=== PATIENT | female | born 1940 | race Caucasian/White ===

== ENCOUNTER 2018-05-10 01:49 | Inpatient (IN) | payer MEDICARE, MEDICAID ==
[~2018-05-10] VITALS: Ht 170.2 cm; Wt 84.4 kg
[~2018-05-10 01:49] MED LIST: DOXE50CA21 PO; LORA-259 PO; OXYC20TA58 PO; armour thyroid PO; toprol PO
[2018-05-10] MEDS ORDERED: NALOXONE HCL 0.4 MG/ML AMPUL ONE (02:03)
[2018-05-10] MEDS ORDERED: NALOXONE HCL 0.4 MG/ML AMPUL IV ONE (02:30)
[2018-05-10] MEDS ORDERED: IV NS 0.9% 1,000 ML BAG IV ONE ×2 (02:30→06:00)
[2018-05-10 03:11] LABS: HEMATOCRIT 41 % (33-45); HEMOGLOBIN 13.6 g/dL (11.5-14.8); MEAN CORPUSCULAR HEMOGLOBIN 31 PG (26.0-33.0); MEAN CORPUSCULAR HGB CONC 33 g/dl (31.0-36.0); MEAN CORPUSCULAR VOLUME 92 fL (82-100); PLATELET COUNT (AUTO) 194 /CMM (150-450); RDW COEFFICIENT OF VARIATION 13.9 (11.5-15.0); RED BLOOD CELL COUNT(AUTO) 4.44 MIL/uL (4.0-5.2)
[2018-05-10 03:12] LABS: BASOPHILS % (AUTO) 0.1 % (0.0-2.0); EOSINOPHILS % (AUTO) 0.7 % (0.0-6.0); LYMPHOCYTES % (AUTO) 12.4 % (20.0-44.0); MONOCYTES % (AUTO) 4.7 % (2.0-12.0); NEUTROPHILS % (AUTO) 82.1 % (43.0-81.0)
[2018-05-10 03:22] LABS: INR 1.08 (0.87-1.13)
[2018-05-10 03:25] LABS: CALCIUM, SERUM 9.3 mg/dL (8.5-10.1); CARBON DIOXIDE 21 mmol/L (21-32); CHLORIDE 100 mmol/L (98-107); CREATININE 2.1 mg/dL (0.6-1.3); GLUCOSE 120 mg/dL (74-106); POTASSIUM 4.1 mmol/L (3.5-5.1); SODIUM SERUM 134 mmol/L (136-145); UREA NITROGEN, BLOOD 24 mg/dL (7-18)
[2018-05-10 03:35] LABS: ALANINE AMINOTRANSFERASE 26 U/L (12-78); ALCOHOL, BLOOD < 3 mg/dL (0-0); ALKALINE PHOSPHATASE 126 U/L (46-116); ASPARTATE AMINOTRANSFERASE 36 U/L (15-37); BILIRUBIN,DIRECT 0.1 mg/dL (0.0-0.2); BILIRUBIN,TOTAL 0.6 mg/dL (0.2-1.0); TOTAL PROTEIN, SERUM 7.5 g/dL (6.4-8.2)
[2018-05-10 03:35] LABS: APPEARANCE,URINE CLEAR (CLEAR); BILIRUBIN,URINE NEGATIVE (NEGATIVE); BLOOD, URINE NEGATIVE Ery/uL (NEGATIVE); COLOR,URINE YELLOW (YELLOW); KETONES,URINE NEGATIVE (NEGATIVE); LEUKOCYTE ESTERASE ,URINE NEGATIVE (NEGATIVE); NITRITE, URINE NEGATIVE (NEGATIVE); PROTEIN,URINE 1+ mg/dl (NEGATIVE); UGLUCOSE NEGATIVE (NEGATIVE); UROBILINOGEN,URINE 0.2 EU/dL (0.2)
[2018-05-10 03:45] LABS: BACTERIA,URINE None seen /HPF (None Seen); RBC,URINE 0-2 /HPF (0-2); SQUAMOUS EPITHELIAL CELL,UR Few /HPF (None Seen); WBC,URINE 0-2 /HPF (0-3)
[2018-05-10 03:46] LABS: HYALINE CASTS, URINE Few /LPF (None Seen); MUCUS,URINE Few /LPF (None Seen); URINE AMORPHOUS URATE Few /HPF (None Seen)
[2018-05-10 03:51] LABS: TROPONIN I 0.698 ng/mL (0.00-0.056)
[2018-05-10] MEDS ORDERED: IV NS 0.9% 1,000 ML IV PRN (05:19)
[2018-05-10] MEDS ORDERED: MAG HYDROX/AL HYDROX/SIMETH 30 ML UDC PO PRN (05:30)
[2018-05-10] MEDS ORDERED: ONDANSETRON HCL/PF 4 MG/2 ML VIAL IVP PRN (05:30)
[2018-05-10] MEDS ORDERED: MAGNESIUM HYDROXIDE 30 ML UDC PO PRN (05:30)
[2018-05-10] MEDS ORDERED: Z GUARD REMEDY 2 OZ OINT TP PRN (05:30)
[2018-05-10] MEDS ORDERED: DOCU-267 PO (07:42)
[2018-05-10] MEDS ORDERED: THYR60TA2 PO (07:42)
[2018-05-10] MEDS ORDERED: FOLI1TAB16 PO (07:42)
[2018-05-10] MEDS ORDERED: METO25TA3 PO (07:42)
[2018-05-10] MEDS ORDERED: CHOL100044 PO (08:09)
[2018-05-10 08:18] LABS: THYROID STIMULATING HORMONE 4.309 uIU/mL (0.358-3.74)
[2018-05-10 08:25] VITALS: BP 118/55
[2018-05-10] MEDS: IV NS 0.9% 1,000 ML IV SCH ×2 (08:35→13:36)
[2018-05-10 08:49] LABS: MAGNESIUM 1.6 mg/dL (1.8-2.4)
[2018-05-10] MEDS: FOLIC ACID 1 MG TABLET PO SCH (09:00)
[2018-05-10] MEDS ORDERED: ARMOUR THYROID PO SCH (09:00)
[2018-05-10] MEDS: METOPROLOL SUCCINATE 25 MG TAB.SR.24H PO SCH (09:00)
[2018-05-10] MEDS: ASPIRIN 81 MG TAB.CHEW PO SCH (09:01)
[2018-05-10] MEDS: PANTOPRAZOLE 40 MG TABLET.DR PO SCH (09:01)
[2018-05-10] MEDS: DOCUSATE SODIUM 100 MG CAPSULE PO SCH ×2 (09:01→17:02)
[2018-05-10] MEDS: THYROID 30 MG TABLET PO SCH (09:02)
[2018-05-10] MEDS ORDERED: Magnesium 1GM/D5W 100ML PREMIX 100 ML IV SCH (10:30)
[2018-05-10] MEDS: ACETAMINOPHEN 325 MG TABLET PO PRN ×2 (10:32→21:27)
[2018-05-10 12:00] VITALS: BP 133/56
[2018-05-10 16:00] VITALS: BP 118/46
[2018-05-10 20:00] VITALS: BP 130/65
[2018-05-11] VITALS: BP 127/64
[2018-05-11 04:00] VITALS: BP 143/71
[2018-05-11 06:42] LABS: EOSINOPHILS % (AUTO) 0.1 % (0.0-6.0); HEMATOCRIT 34 % (33-45); HEMOGLOBIN 11.4 g/dL (11.5-14.8); LYMPHOCYTES # (AUTO) 0.8 /CMM (0.8-4.8); LYMPHOCYTES % (AUTO) 4.3 % (20.0-44.0); MEAN CORPUSCULAR HEMOGLOBIN 31 PG (26.0-33.0); MEAN CORPUSCULAR HGB CONC 34 g/dl (31.0-36.0); MEAN CORPUSCULAR VOLUME 93 fL (82-100); MONOCYTES # (AUTO) 0.1 /CMM (0.1-1.30); MONOCYTES % (AUTO) 0.4 % (2.0-12.0); NEUTROPHILS # (AUTO) 17.8 /CMM (1.8-8.9); NEUTROPHILS % (AUTO) 95.2 % (43.0-81.0); PLATELET COUNT (AUTO) 151 /CMM (150-450); RDW COEFFICIENT OF VARIATION 13.7 (11.5-15.0); RED BLOOD CELL COUNT(AUTO) 3.69 MIL/uL (4.0-5.2); WHITE BLOOD COUNT (AUTO) 18.7 K/uL (4.3-11.0)
[2018-05-11 06:48] LABS: TROPONIN I 0.252 ng/mL (0.00-0.056)
[2018-05-11 06:49] LABS: ALANINE AMINOTRANSFERASE 28 U/L (12-78); ALBUMIN 2.2 g/dL (3.4-5.0); ALKALINE PHOSPHATASE 105 U/L (46-116); ASPARTATE AMINOTRANSFERASE 37 U/L (15-37); BILIRUBIN,TOTAL 0.6 mg/dL (0.2-1.0); CALCIUM, SERUM 7.9 mg/dL (8.5-10.1); CARBON DIOXIDE 21 mmol/L (21-32); CHLORIDE 102 mmol/L (98-107); CREATININE 1.5 mg/dL (0.6-1.3); GLUCOSE 123 mg/dL (74-106); MAGNESIUM 1.6 mg/dL (1.8-2.4); PHOSPHORUS 2.1 mg/dL (2.5-4.9); SODIUM SERUM 134 mmol/L (136-145); TOTAL PROTEIN, SERUM 5.8 g/dL (6.4-8.2); UREA NITROGEN, BLOOD 19 mg/dL (7-18)
[2018-05-11 07:54] LABS: CHOLESTEROL 107 mg/dL (<200); HDL CHOLESTEROL 30 mg/dL (40-60); LDL 60 mg/dL (0-99); TRIGLYCERIDES 59 mg/dL (30-150)
[2018-05-11 08:00] VITALS: BP 129/63
[2018-05-11] MEDS: THYROID 30 MG TABLET PO SCH (08:04)
[2018-05-11] MEDS: FOLIC ACID 1 MG TABLET PO SCH (08:04)
[2018-05-11] MEDS: METOPROLOL SUCCINATE 25 MG TAB.SR.24H PO SCH (08:04)
[2018-05-11] MEDS: PANTOPRAZOLE 40 MG TABLET.DR PO SCH (08:04)
[2018-05-11] MEDS: ASPIRIN 81 MG TAB.CHEW PO SCH (08:04)
[2018-05-11] MEDS: DOCUSATE SODIUM 100 MG CAPSULE PO SCH ×2 (08:05→16:18)
[2018-05-11] MEDS: POTASSIUM CHLORIDE 20 MEQ POWDER PACKET PO ONE ×2 (09:00→10:35)
[2018-05-11] MEDS ORDERED: Magnesium 1GM/D5W 100ML PREMIX PIGGYBACK IV ONE (09:00)
[2018-05-11] MEDS ORDERED: MGSO4/D5W 100 ML IV ONE (09:30)
[2018-05-11] MEDS ORDERED: POTASSIUM PHOSPHATE MM 15 MMOL in IV D5W 250 ML IV SCH (10:00)
[2018-05-11] MEDS: IV NS 0.9% 1,000 ML IV PRN (10:36)
[2018-05-11] MEDS ORDERED: POTASSIUM CHLORIDE 20 MEQ TAB.PRT.SR PO ONE (11:30)
[2018-05-11 12:00] VITALS: BP 134/64
[2018-05-11] MEDS: POTASSIUM PHOSPHATE MM 7.5 MMOL in IV D5W 100 ML IV SCH ×2 (13:03→21:48)
[2018-05-11] MEDS: CYANOCOBALAMIN 500 MCG TABLET PO SCH (14:42)
[2018-05-11] MEDS ORDERED: FEE PK DOSING 1 MIN EA MC ONE (15:35)
[2018-05-11 16:00] VITALS: BP 144/70
[2018-05-11] MEDS: VANCOMYCIN 0.75 GM in IV D5W 250 ML IV SCH (16:19)
[2018-05-11] MEDS: PIPERACILLIN /TAZOBACTAM 2.25 G in IV D5W 50 ML IV SCH ×2 (18:43→23:09)
[2018-05-11 20:00] VITALS: BP 149/68
[2018-05-12] VITALS: BP 149/76
[2018-05-12 04:00] VITALS: BP 161/73
[2018-05-12 05:00] VITALS: BP 155/72
[2018-05-12] MEDS: PIPERACILLIN /TAZOBACTAM 2.25 G in IV D5W 50 ML IV SCH ×4 (05:05→23:05)
[2018-05-12 06:26] LABS: EOSINOPHILS % (AUTO) 0.2 % (0.0-6.0); HEMATOCRIT 33 % (33-45); HEMOGLOBIN 10.9 g/dL (11.5-14.8); LYMPHOCYTES # (AUTO) 0.8 /CMM (0.8-4.8); LYMPHOCYTES % (AUTO) 4.7 % (20.0-44.0); MEAN CORPUSCULAR HEMOGLOBIN 31 PG (26.0-33.0); MEAN CORPUSCULAR HGB CONC 33 g/dl (31.0-36.0); MEAN CORPUSCULAR VOLUME 92 fL (82-100); MONOCYTES # (AUTO) 0.1 /CMM (0.1-1.30); MONOCYTES % (AUTO) 0.6 % (2.0-12.0); NEUTROPHILS # (AUTO) 15.4 /CMM (1.8-8.9); NEUTROPHILS % (AUTO) 94.5 % (43.0-81.0); PLATELET COUNT (AUTO) 151 /CMM (150-450); RDW COEFFICIENT OF VARIATION 13.6 (11.5-15.0); RED BLOOD CELL COUNT(AUTO) 3.58 MIL/uL (4.0-5.2); WHITE BLOOD COUNT (AUTO) 16.3 K/uL (4.3-11.0)
[2018-05-12] MEDS: IV NS 0.9% 1,000 ML IV PRN ×2 (06:29→23:44)
[2018-05-12 06:37] LABS: ALANINE AMINOTRANSFERASE 29 U/L (12-78); ALKALINE PHOSPHATASE 99 U/L (46-116); ASPARTATE AMINOTRANSFERASE 34 U/L (15-37); BILIRUBIN,TOTAL 0.6 mg/dL (0.2-1.0); CALCIUM, SERUM 7.6 mg/dL (8.5-10.1); CARBON DIOXIDE 21 mmol/L (21-32); CHLORIDE 100 mmol/L (98-107); CREATININE 1.3 mg/dL (0.6-1.3); GLUCOSE 131 mg/dL (74-106); MAGNESIUM 1.7 mg/dL (1.8-2.4); PHOSPHORUS 1.5 mg/dL (2.5-4.9); SODIUM SERUM 131 mmol/L (136-145); TOTAL PROTEIN, SERUM 5.2 g/dL (6.4-8.2); UREA NITROGEN, BLOOD 15 mg/dL (7-18)
[2018-05-12 06:40] LABS: POTASSIUM 2.7 mmol/L (3.5-5.1)
[2018-05-12 06:50] LABS: FERRITIN 575 ng/mL (8-388)
[2018-05-12 08:00] VITALS: BP 155/80
[2018-05-12] MEDS: THYROID 30 MG TABLET PO SCH (08:06)
[2018-05-12] MEDS: DOCUSATE SODIUM 100 MG CAPSULE PO SCH ×2 (08:06→17:00)
[2018-05-12 08:08] LABS: IRON, SERUM 17 ug/dl (50-175); TOTAL IRON BINDING CAPACITY 132 ug/dl (250-450)
[2018-05-12] MEDS: CYANOCOBALAMIN 500 MCG TABLET PO SCH (08:11)
[2018-05-12] MEDS: ASPIRIN 81 MG TAB.CHEW PO SCH (08:11)
[2018-05-12] MEDS: FOLIC ACID 1 MG TABLET PO SCH (08:11)
[2018-05-12] MEDS: PANTOPRAZOLE 40 MG TABLET.DR PO SCH (08:11)
[2018-05-12] MEDS: METOPROLOL SUCCINATE 25 MG TAB.SR.24H PO SCH (08:12)
[2018-05-12] MEDS: VANCOMYCIN 0.75 GM in IV D5W 250 ML IV SCH (09:01)
[2018-05-12] MEDS: POTASSIUM CHLORIDE 20 MEQ TAB.PRT.SR PO SCH ×3 (10:07→12:21)
[2018-05-12] MEDS: Magnesium 1GM/D5W 100ML PREMIX 100 ML IV SCH ×2 (10:35→11:40)
[2018-05-12] MEDS ORDERED: POTASSIUM CHLORIDE 20 MEQ TAB.PRT.SR PO ONE (11:00)
[2018-05-12] MEDS ORDERED: K PHOS NEUTRAL 250 MG TABLET PO ONE (11:00)
[2018-05-12] MEDS: METOCLOPRAMIDE HCL 10 MG/2 ML VIAL IV PRN (12:33)
[2018-05-12] MEDS: POTASSIUM CL. PREMIX PERIPHER. 50 ML IV SCH ×4 (13:43→19:05)
[2018-05-12] MEDS ORDERED: POTASSIUM CHLORIDE 10 MEQ/50 ML PREMIXED IVPB FOR PERIPHERAL LINE IV SCH (14:00)
[2018-05-12] MEDS: LACTOBACILLUS RHAMNOSUS GG 1 EACH CAP.SPRINK PO SCH (14:04)
[2018-05-12] MEDS: SOD FERRIC GLUC 125 MG in IV NS 0.9% 100 ML IV SCH (14:51)
[2018-05-12 16:00] VITALS: BP 145/75
[2018-05-12 20:00] VITALS: BP 129/78
[2018-05-12] MEDS: oxyCODONE HCL SR 20MG TAB.SR.12H PO SCH (20:32)
[2018-05-13 03:24] LABS: EOSINOPHILS % (AUTO) 0.6 % (0.0-6.0); HEMATOCRIT 36 % (33-45); HEMOGLOBIN 12.1 g/dL (11.5-14.8); LYMPHOCYTES # (AUTO) 1.1 /CMM (0.8-4.8); LYMPHOCYTES % (AUTO) 6.1 % (20.0-44.0); MEAN CORPUSCULAR HEMOGLOBIN 31 PG (26.0-33.0); MEAN CORPUSCULAR HGB CONC 34 g/dl (31.0-36.0); MEAN CORPUSCULAR VOLUME 91 fL (82-100); MONOCYTES # (AUTO) 0.1 /CMM (0.1-1.30); MONOCYTES % (AUTO) 0.3 % (2.0-12.0); NEUTROPHILS # (AUTO) 16.2 /CMM (1.8-8.9); PLATELET COUNT (AUTO) 176 /CMM (150-450); RDW COEFFICIENT OF VARIATION 13.8 (11.5-15.0); RED BLOOD CELL COUNT(AUTO) 3.93 MIL/uL (4.0-5.2); WHITE BLOOD COUNT (AUTO) 17.5 K/uL (4.3-11.0)
[2018-05-13 03:35] LABS: ALANINE AMINOTRANSFERASE 37 U/L (12-78); ALBUMIN 2.2 g/dL (3.4-5.0); ALKALINE PHOSPHATASE 112 U/L (46-116); ASPARTATE AMINOTRANSFERASE 40 U/L (15-37); BILIRUBIN,TOTAL 0.7 mg/dL (0.2-1.0); CALCIUM, SERUM 7.9 mg/dL (8.5-10.1); CARBON DIOXIDE 23 mmol/L (21-32); CHLORIDE 101 mmol/L (98-107); CREATININE 1.4 mg/dL (0.6-1.3); GLUCOSE 128 mg/dL (74-106); MAGNESIUM 2.2 mg/dL (1.8-2.4); PHOSPHORUS 2.2 mg/dL (2.5-4.9); POTASSIUM 3.7 mmol/L (3.5-5.1); SODIUM SERUM 131 mmol/L (136-145); TOTAL PROTEIN, SERUM 5.8 g/dL (6.4-8.2); UREA NITROGEN, BLOOD 13 mg/dL (7-18)
[2018-05-13] MEDS: VANCOMYCIN 0.75 GM in IV D5W 250 ML IV SCH (03:58)
[2018-05-13 04:00] VITALS: BP 128/77
[2018-05-13] MEDS: PIPERACILLIN /TAZOBACTAM 2.25 G in IV D5W 50 ML IV SCH ×2 (05:03→11:17)
[2018-05-13 08:00] VITALS: BP 140/74
[2018-05-13 08:08] LABS: *SPE A/G RATIO 0.9 (0.7-1.7); *SPE ALBUMIN 2.7 g/dL (2.9-4.4); *SPE ALPHA-1-GLOBULIN 0.4 g/dL (0.0-0.4); *SPE ALPHA-2-GLOBULIN 0.8 g/dL (0.4-1.0); *SPE BETA GLOBULIN 1.1 g/dL (0.7-1.3); *SPE GLOBULIN, TOTAL 3.1 g/dL (2.2-3.9); *SPE M-SPIKE Not Observed g/dL (Not Observed); *SPEGAMMA GLOBULIN 0.7 g/dL (0.4-1.8)
[2018-05-13] MEDS: DOCUSATE SODIUM 100 MG CAPSULE PO SCH (08:31)
[2018-05-13] MEDS: CYANOCOBALAMIN 500 MCG TABLET PO SCH (08:31)
[2018-05-13] MEDS: PANTOPRAZOLE 40 MG TABLET.DR PO SCH (08:32)
[2018-05-13] MEDS: METOPROLOL SUCCINATE 25 MG TAB.SR.24H PO SCH (08:32)
[2018-05-13] MEDS: oxyCODONE HCL SR 20MG TAB.SR.12H PO SCH ×2 (08:32→20:04)
[2018-05-13] MEDS: FOLIC ACID 1 MG TABLET PO SCH (08:32)
[2018-05-13] MEDS: ASPIRIN 81 MG TAB.CHEW PO SCH (08:32)
[2018-05-13] MEDS: LACTOBACILLUS RHAMNOSUS GG 1 EACH CAP.SPRINK PO SCH (08:32)
[2018-05-13] MEDS: THYROID 30 MG TABLET PO SCH (08:33)
[2018-05-13] MEDS: IV NS 0.9% 1,000 ML IV PRN ×2 (09:55→23:33)
[2018-05-13] MEDS ORDERED: Sodium Phosphate 15 MMOL in IV D5W 250 ML IV ONE (11:00)
[2018-05-13] MEDS ORDERED: VANCOMYCIN HCL 125 MG/2.5 ML ORAL.SUSP PO SCH (12:00)
[2018-05-13] MEDS: METRONIDAZOLE 500MG/ NS 100ML 500 MG in PREMIX 1 EA IV SCH ×2 (12:50→20:04)
[2018-05-13] MEDS: SOD FERRIC GLUC 125 MG in IV NS 0.9% 100 ML IV SCH (14:07)
[2018-05-13] MEDS ORDERED: FERROUS SULFATE (325 MG) 325 MG/TAB TABLET PO SCH (14:30)
[2018-05-13] MEDS: MORPHINE SULFATE INJ 2 MG/ML DISP.SYRIN IV PRN ×2 (15:28→23:38)
[2018-05-13 16:00] VITALS: BP 110/71
[2018-05-13] MEDS ORDERED: VANCOMYCIN 0.75 GM in IV D5W 250 ML IV SCH (16:00)
[2018-05-13] MEDS: VANCOMYCIN HCL 125 MG/2.5 ML ORAL.SUSP PO SCH ×2 (17:11→23:38)
[2018-05-13 20:00] VITALS: BP 108/59
[2018-05-14 04:00] VITALS: BP_SYST 117; BP_DIAS 70; BP_DIAS 79
[2018-05-14] MEDS: METRONIDAZOLE 500MG/ NS 100ML 500 MG in PREMIX 1 EA IV SCH ×3 (04:58→20:14)
[2018-05-14] MEDS: VANCOMYCIN HCL 125 MG/2.5 ML ORAL.SUSP PO SCH ×3 (06:33→18:03)
[2018-05-14 08:00] VITALS: BP 123/69
[2018-05-14] MEDS: LACTOBACILLUS RHAMNOSUS GG 1 EACH CAP.SPRINK PO SCH (08:34)
[2018-05-14] MEDS: CYANOCOBALAMIN 500 MCG TABLET PO SCH (08:34)
[2018-05-14] MEDS: FOLIC ACID 1 MG TABLET PO SCH (08:34)
[2018-05-14] MEDS: METOPROLOL SUCCINATE 25 MG TAB.SR.24H PO SCH (08:34)
[2018-05-14] MEDS: PANTOPRAZOLE 40 MG TABLET.DR PO SCH (08:35)
[2018-05-14] MEDS: ASPIRIN 81 MG TAB.CHEW PO SCH (08:35)
[2018-05-14] MEDS: THYROID 30 MG TABLET PO SCH (08:35)
[2018-05-14] MEDS: oxyCODONE HCL SR 20MG TAB.SR.12H PO SCH ×2 (08:36→20:35)
[2018-05-14] MEDS: IV NS 0.9% 1,000 ML IV PRN (08:50)
[2018-05-14 16:00] VITALS: BP_SYST 140; BP_SYST 146; BP_DIAS 75
[2018-05-14] MEDS ORDERED: OLANZAPINE 5 MG/TAB.RAPDIS PO PRN (17:30)
[2018-05-14 18:29] LABS: BASOPHILS % (AUTO) 0.2 % (0.0-2.0); EOSINOPHILS % (AUTO) 1.8 % (0.0-6.0); HEMATOCRIT 30 % (33-45); HEMOGLOBIN 9.6 g/dL (11.5-14.8); LYMPHOCYTES # (AUTO) 1.1 /CMM (0.8-4.8); LYMPHOCYTES % (AUTO) 7.9 % (20.0-44.0); MEAN CORPUSCULAR HEMOGLOBIN 30 PG (26.0-33.0); MEAN CORPUSCULAR HGB CONC 32 g/dl (31.0-36.0); MEAN CORPUSCULAR VOLUME 93 fL (82-100); MONOCYTES # (AUTO) 0.4 /CMM (0.1-1.30); MONOCYTES % (AUTO) 2.7 % (2.0-12.0); NEUTROPHILS # (AUTO) 12.2 /CMM (1.8-8.9); NEUTROPHILS % (AUTO) 87.4 % (43.0-81.0); PLATELET COUNT (AUTO) 168 /CMM (150-450); RDW COEFFICIENT OF VARIATION 14.3 (11.5-15.0); RED BLOOD CELL COUNT(AUTO) 3.19 MIL/uL (4.0-5.2)
[2018-05-14] MEDS ORDERED: IBUPROFEN 200 MG TABLET PO PRN (18:30)
[2018-05-14 18:35] LABS: CALCIUM, SERUM 7.5 mg/dL (8.5-10.1); CARBON DIOXIDE 16 mmol/L (21-32); CHLORIDE 106 mmol/L (98-107); CREATININE 1.7 mg/dL (0.6-1.3); GLUCOSE 112 mg/dL (74-106); PHOSPHORUS 3.3 mg/dL (2.5-4.9); POTASSIUM 3.1 mmol/L (3.5-5.1); SODIUM SERUM 136 mmol/L (136-145); UREA NITROGEN, BLOOD 17 mg/dL (7-18)
[2018-05-14 20:00] VITALS: BP 138/76
[2018-05-15] MEDS: VANCOMYCIN HCL 125 MG/2.5 ML ORAL.SUSP PO SCH ×4 (00:21→18:45)
[2018-05-15] MEDS: IV NS 0.9% 1,000 ML IV PRN ×3 (00:45→21:29)
[2018-05-15 04:00] VITALS: BP_SYST 138; BP_DIAS 76; BP_DIAS 83
[2018-05-15] MEDS: METRONIDAZOLE 500MG/ NS 100ML 500 MG in PREMIX 1 EA IV SCH ×3 (04:10→20:39)
[2018-05-15] MEDS: MORPHINE SULFATE INJ 2 MG/ML DISP.SYRIN IV PRN ×2 (04:30→18:47)
[2018-05-15 08:00] VITALS: BP 132/76
[2018-05-15] MEDS: LACTOBACILLUS RHAMNOSUS GG 1 EACH CAP.SPRINK PO SCH (08:41)
[2018-05-15] MEDS: oxyCODONE HCL SR 20MG TAB.SR.12H PO SCH ×2 (08:42→20:39)
[2018-05-15] MEDS: FOLIC ACID 1 MG TABLET PO SCH (08:42)
[2018-05-15] MEDS: ASPIRIN 81 MG TAB.CHEW PO SCH (08:42)
[2018-05-15] MEDS: PANTOPRAZOLE 40 MG TABLET.DR PO SCH (08:42)
[2018-05-15] MEDS: METOPROLOL SUCCINATE 25 MG TAB.SR.24H PO SCH (08:43)
[2018-05-15] MEDS: CYANOCOBALAMIN 500 MCG TABLET PO SCH (08:45)
[2018-05-15] MEDS: THYROID 30 MG TABLET PO SCH (08:46)
[2018-05-15] MEDS: METOCLOPRAMIDE HCL 10 MG/2 ML VIAL IV PRN ×2 (11:44→18:45)
[2018-05-15 15:22] LABS: BASOPHILS % (AUTO) 0.2 % (0.0-2.0); EOSINOPHILS % (AUTO) 1.4 % (0.0-6.0); HEMATOCRIT 31 % (33-45); HEMOGLOBIN 10.2 g/dL (11.5-14.8); LYMPHOCYTES # (AUTO) 1.4 /CMM (0.8-4.8); LYMPHOCYTES % (AUTO) 8.8 % (20.0-44.0); MEAN CORPUSCULAR HEMOGLOBIN 31 PG (26.0-33.0); MEAN CORPUSCULAR HGB CONC 33 g/dl (31.0-36.0); MEAN CORPUSCULAR VOLUME 93 fL (82-100); MONOCYTES # (AUTO) 0.4 /CMM (0.1-1.30); MONOCYTES % (AUTO) 2.4 % (2.0-12.0); NEUTROPHILS # (AUTO) 13.9 /CMM (1.8-8.9); NEUTROPHILS % (AUTO) 87.2 % (43.0-81.0); PLATELET COUNT (AUTO) 168 /CMM (150-450); RDW COEFFICIENT OF VARIATION 14.6 (11.5-15.0); RED BLOOD CELL COUNT(AUTO) 3.36 MIL/uL (4.0-5.2); WHITE BLOOD COUNT (AUTO) 15.9 K/uL (4.3-11.0)
[2018-05-15 15:36] LABS: ALANINE AMINOTRANSFERASE 33 U/L (12-78); ALBUMIN 2.1 g/dL (3.4-5.0); ALKALINE PHOSPHATASE 96 U/L (46-116); ASPARTATE AMINOTRANSFERASE 37 U/L (15-37); BILIRUBIN,TOTAL 0.5 mg/dL (0.2-1.0); CARBON DIOXIDE 17 mmol/L (21-32); CHLORIDE 105 mmol/L (98-107); CREATININE 2.2 mg/dL (0.6-1.3); GLUCOSE 105 mg/dL (74-106); PHOSPHORUS 3.5 mg/dL (2.5-4.9); POTASSIUM 3.3 mmol/L (3.5-5.1); SODIUM SERUM 135 mmol/L (136-145); TOTAL PROTEIN, SERUM 5.6 g/dL (6.4-8.2); UREA NITROGEN, BLOOD 22 mg/dL (7-18)
[2018-05-15 16:00] VITALS: BP 130/75
[2018-05-15 20:00] VITALS: BP 138/77
[2018-05-16] MEDS: VANCOMYCIN HCL 125 MG/2.5 ML ORAL.SUSP PO SCH ×7 (00:33→18:46)
[2018-05-16] MEDS: MORPHINE SULFATE INJ 2 MG/ML DISP.SYRIN IV PRN (00:34)
[2018-05-16 04:00] VITALS: BP 151/86
[2018-05-16] MEDS: METRONIDAZOLE 500MG/ NS 100ML 500 MG in PREMIX 1 EA IV SCH ×3 (05:39→21:03)
[2018-05-16 06:32] LABS: BASOPHILS % (AUTO) 0.1 % (0.0-2.0); EOSINOPHILS % (AUTO) 1.4 % (0.0-6.0); HEMATOCRIT 31 % (33-45); HEMOGLOBIN 10.2 g/dL (11.5-14.8); LYMPHOCYTES # (AUTO) 1.2 /CMM (0.8-4.8); LYMPHOCYTES % (AUTO) 8.2 % (20.0-44.0); MEAN CORPUSCULAR HEMOGLOBIN 31 PG (26.0-33.0); MEAN CORPUSCULAR HGB CONC 33 g/dl (31.0-36.0); MEAN CORPUSCULAR VOLUME 93 fL (82-100); MONOCYTES # (AUTO) 0.6 /CMM (0.1-1.30); MONOCYTES % (AUTO) 4.2 % (2.0-12.0); NEUTROPHILS # (AUTO) 12.2 /CMM (1.8-8.9); NEUTROPHILS % (AUTO) 86.1 % (43.0-81.0); PLATELET COUNT (AUTO) 154 /CMM (150-450); RDW COEFFICIENT OF VARIATION 14.3 (11.5-15.0); RED BLOOD CELL COUNT(AUTO) 3.34 MIL/uL (4.0-5.2); WHITE BLOOD COUNT (AUTO) 14.2 K/uL (4.3-11.0)
[2018-05-16 06:37] LABS: ALANINE AMINOTRANSFERASE 30 U/L (12-78); ALBUMIN 2.2 g/dL (3.4-5.0); ALKALINE PHOSPHATASE 101 U/L (46-116); ASPARTATE AMINOTRANSFERASE 40 U/L (15-37); BILIRUBIN,TOTAL 0.5 mg/dL (0.2-1.0); CALCIUM, SERUM 8.1 mg/dL (8.5-10.1); CARBON DIOXIDE 16 mmol/L (21-32); CHLORIDE 105 mmol/L (98-107); CREATININE 2.2 mg/dL (0.6-1.3); GLUCOSE 98 mg/dL (74-106); PHOSPHORUS 3.6 mg/dL (2.5-4.9); POTASSIUM 3.3 mmol/L (3.5-5.1); SODIUM SERUM 135 mmol/L (136-145); TOTAL PROTEIN, SERUM 5.7 g/dL (6.4-8.2); UREA NITROGEN, BLOOD 25 mg/dL (7-18)
[2018-05-16] MEDS: THYROID 30 MG TABLET PO SCH ×2 (07:30→09:08)
[2018-05-16 08:00] VITALS: BP 156/84
[2018-05-16] MEDS: PANTOPRAZOLE 40 MG TABLET.DR PO SCH ×2 (09:00→09:08)
[2018-05-16] MEDS: CYANOCOBALAMIN 500 MCG TABLET PO SCH ×2 (09:00→09:08)
[2018-05-16] MEDS: ASPIRIN 81 MG TAB.CHEW PO SCH ×2 (09:00→09:09)
[2018-05-16] MEDS: METOPROLOL SUCCINATE 25 MG TAB.SR.24H PO SCH ×2 (09:00→09:09)
[2018-05-16] MEDS: FOLIC ACID 1 MG TABLET PO SCH ×2 (09:00→09:08)
[2018-05-16] MEDS: LACTOBACILLUS RHAMNOSUS GG 1 EACH CAP.SPRINK PO SCH ×2 (09:00→09:08)
[2018-05-16] MEDS: IV NS 0.9% 1,000 ML IV PRN (09:07)
[2018-05-16] MEDS: POTASSIUM CHLORIDE 20 MEQ TAB.PRT.SR PO SCH ×3 (09:09→10:30)
[2018-05-16] MEDS: oxyCODONE HCL SR 20MG TAB.SR.12H PO SCH ×2 (09:15→21:00)
[2018-05-16] MEDS ORDERED: POTASSIUM CHLORIDE 10 MEQ/50 ML PREMIXED IVPB FOR PERIPHERAL LINE IV ONE (13:00)
[2018-05-16] MEDS: POTASSIUM CL. PREMIX PERIPHER. 50 ML IV SCH ×2 (13:53→15:39)
[2018-05-16 16:00] VITALS: BP 162/92
[2018-05-16 16:00] LABS: CREATININE, URINE 98.1 MG/DL (30.0-125.0); URINE TOTAL PROTEIN 94.8 mg/dL (0-11.9)
[2018-05-16 16:03] LABS: APPEARANCE,URINE SL CLOUDY (CLEAR); BILIRUBIN,URINE NEGATIVE (NEGATIVE); BLOOD, URINE 1+ Ery/uL (NEGATIVE); COLOR,URINE YELLOW (YELLOW); KETONES,URINE NEGATIVE (NEGATIVE); LEUKOCYTE ESTERASE ,URINE NEGATIVE (NEGATIVE); NITRITE, URINE POSITIVE (NEGATIVE); PROTEIN,URINE 1+ mg/dl (NEGATIVE); UGLUCOSE NEGATIVE (NEGATIVE); UROBILINOGEN,URINE 0.2 EU/dL (0.2)
[2018-05-16 16:23] LABS: BACTERIA,URINE Few /HPF (None Seen); SQUAMOUS EPITHELIAL CELL,UR Few /HPF (None Seen)
[2018-05-16] MEDS ORDERED: CLONIDINE HCL 0.1 MG TABLET PO ONE (16:30)
[2018-05-16 16:43] LABS: EOSINOPHIL,URINE None Seen
[2018-05-16 20:00] VITALS: BP 159/85
[2018-05-17 05:00] VITALS: BP 94/85
[2018-05-17] MEDS: METRONIDAZOLE 500MG/ NS 100ML 500 MG in PREMIX 1 EA IV SCH ×2 (05:05→12:30)
[2018-05-17] MEDS: VANCOMYCIN HCL 125 MG/2.5 ML ORAL.SUSP PO SCH ×3 (05:06→12:30)
[2018-05-17 08:00] VITALS: BP 169/100
[2018-05-17] MEDS: ASPIRIN 81 MG TAB.CHEW PO SCH (08:22)
[2018-05-17] MEDS: oxyCODONE HCL SR 20MG TAB.SR.12H PO SCH (08:22)
[2018-05-17] MEDS: FOLIC ACID 1 MG TABLET PO SCH (08:22)
[2018-05-17] MEDS: LACTOBACILLUS RHAMNOSUS GG 1 EACH CAP.SPRINK PO SCH (08:22)
[2018-05-17] MEDS: THYROID 30 MG TABLET PO SCH (08:22)
[2018-05-17] MEDS: PANTOPRAZOLE 40 MG TABLET.DR PO SCH (08:22)
[2018-05-17] MEDS: CYANOCOBALAMIN 500 MCG TABLET PO SCH (08:22)
[2018-05-17] MEDS: METOPROLOL SUCCINATE 25 MG TAB.SR.24H PO SCH (08:23)
[2018-05-17] MEDS: POTASSIUM CL. PREMIX PERIPHER. 50 ML IV SCH ×2 (10:09→11:06)
[2018-05-17] MEDS ORDERED: oxyCODONE HCL SR 20MG PO (11:47)
[2018-05-17] MEDS ORDERED: PANT40TA2 PO (11:47)
[2018-05-17] MEDS ORDERED: VANC125C11 PO (11:47)
[2018-05-17] MEDS ORDERED: IBUP-51 PO (11:47)
[2018-05-17] MEDS ORDERED: ASPI-1169 PO (11:47)
[2018-05-17] MEDS ORDERED: CYAN500T4 PO (11:47)
[2018-05-17] MEDS ORDERED: MAG30ORA PO (11:47)
[2018-05-17] MEDS ORDERED: LACT1CAP72 PO (11:47)
[2018-05-17] MEDS ORDERED: OLAN5TAB6 PO (11:47)
[2018-05-17] MEDS ORDERED: METO5VIA6 IV (11:47)
[2018-05-17 13:00] VITALS: BP 148/85
[2018-05-17] MEDS ORDERED: CLONIDINE HCL 0.1 MG TABLET PO ONE (15:32)
[2018-05-17 16:00] VITALS: BP 163/96
== END 2018-05-17 16:15 | DRG 371 ==
LOC: ER 01:50 → TELE1 07:42 → TELE-TD 08:13 → TELE1 05-11 09:36 → MEDSG1 05-12 11:51
PROVIDERS: ADMIT Internal Medicine; ATTEND Internal Medicine
PROC: 02HV33Z Insertion of Infusion Device into Superior Vena Cava, Percutaneous Approach (ICD-10-PCS; principal; 2018-05-11)
PROC: B548ZZA Ultrasonography of Superior Vena Cava, Guidance (ICD-10-PCS; 2018-05-11)
PROC: 02HV33Z Insertion of Infusion Device into Superior Vena Cava, Percutaneous Approach (ICD-10-PCS; 2018-05-12)
DX: A04.72 Enterocolitis due to Clostridium difficile, not specified as recurrent (principal); G92 Toxic encephalopathy; N17.0 Acute kidney failure with tubular necrosis; I63.9 Cerebral infarction, unspecified; I21.A1 Myocardial infarction type 2; E43 Unspecified severe protein-calorie malnutrition; E87.2 Acidosis; E87.1 Hypo-osmolality and hyponatremia; R18.8 Other ascites; I12.9 Hypertensive chronic kidney disease with stage 1 through stage 4 chronic kidney disease, or unspecified chronic kidney disease; N18.9 Chronic kidney disease, unspecified; M79.7 Fibromyalgia; I95.9 Hypotension, unspecified; E03.9 Hypothyroidism, unspecified; E86.1 Hypovolemia; E86.0 Dehydration; D72.829 Elevated white blood cell count, unspecified; F41.9 Anxiety disorder, unspecified; R53.82 Chronic fatigue, unspecified; E88.09 Other disorders of plasma-protein metabolism, not elsewhere classified; R53.81 Other malaise; F09 Unspecified mental disorder due to known physiological condition; E87.6 Hypokalemia; E83.42 Hypomagnesemia; F32.9 Major depressive disorder, single episode, unspecified; D51.3 Other dietary vitamin B12 deficiency anemia; F11.10 Opioid abuse, uncomplicated; G89.3 Neoplasm related pain (acute) (chronic); Z91.19 Patient's noncompliance with other medical treatment and regimen; R41.0 Disorientation, unspecified; Z91.81 History of falling; R29.6 Repeated falls; T39.395A Adverse effect of other nonsteroidal anti-inflammatory drugs [NSAID], initial encounter; Z85.3 Personal history of malignant neoplasm of breast; Z85.42 Personal history of malignant neoplasm of other parts of uterus; Z85.43 Personal history of malignant neoplasm of ovary; Z92.3 Personal history of irradiation; Z92.21 Personal history of antineoplastic chemotherapy
CPT/HCPCS: 36415; 36569; 70450-TC; 70551-TC; 71045-TC; 78306-TC; 80048-TC; 80053-TC; 80061-TC; 80076-TC; 80202-TC; 80305; 81000-TC; 82306; 82570-TC; 82728-TC; 82746; 82962-TC; 83540-TC; 83605-TC; 83735-TC; 84100-TC; 84155; 84155-TC; 84165; 84300-TC; 84439-TC; 84443-TC; 84484-TC; 85025-TC; 85652-TC; 85730-TC; 86300; 86304; 87040-TC; 87045-TC; 87081-TC; 87086-TC; 87400; 92611-TC; 93307-TC; 97110-TC; 97116-TC; 97530-TC; A4216; A4606; A6402; A9503; A9563; C1751; G0480; J2270; J2310; J2543; J2765; J2916; J3370; J3475; J3480; J3490; J7030; J7050; J7060; Z7610